=== PATIENT | female | born 1965 | race Caucasian/White ===

== ENCOUNTER 2024-09-03 17:39 | Emergency (ER) | payer BC ==
[~2024-09-03] VITALS: Ht 165.1 cm; Wt 64.0 kg
[2024-09-03 17:42] VITALS: TEMP 97.8; O2SAT 98
[2024-09-03] MEDS ORDERED: HYDR-459 MT (18:49)
[2024-09-03] MEDS: DIPHENHYDRAMINE 50MG/ML VIAL IM ONE (19:34)
[2024-09-03 19:35] VITALS: BP 109/82; PULSE 94; RESP 15; O2SAT 100
== END 2024-09-03 19:40 | disposition home or self-care (01) ==
LOC: ER 17:39
DX: R11.2 Nausea with vomiting, unspecified (principal); F41.9 Anxiety disorder, unspecified
CPT/HCPCS: 96372; 99283; J1200; Z7610